=== PATIENT | female | born 1940 | race Caucasian/White ===

== ENCOUNTER → 2020-02-01 | Outpatient (CLI) | payer MEDICARE ==
--- NOTE | 2020-02-02 16:15 | RAD ---
DEXA scan 02/01/2020 Clinical History: Postmenopausal female. Risk factors for osteoporosis. Technique: DEXA of the lumbar spine and right hip was performed. FINDINGS: No previous studies are available for comparison. The bone mineral density of the lumbar spine is 0.874 g/cm2 which corresponds with a T-score of -2.5 . This is consistent with mild osteoporosis. The mean bone mineral density of the right hip is 631 g/sq cm. This corresponds to a T score of -2.6. This is consistent with mild osteoporosis. By World Congress on Osteoporosis criteria, a T score of 0 to-1 SD is considered to be within normal limits. A T score of -1 to -2.5 SD is considered osteopenia. A T score less than -2.5 SD is considered osteoporosis Impression: Mild osteoporosis. Electronically signed by: Khai Chong MD (02/02/2020 4:12 PM) [id number]
--- NOTE | 2020-02-05 14:30 | RAD ---
DATE: 02/01/2020 10:47 AM EXAM: DIGITAL SCREEN BILAT W/CAD HISTORY: Screening COMPARISON: 01/02/2019 Bilateral full field craniocaudal and mediolateral oblique images were obtained using digital technique. This study was interpreted with the benefit of Computerized Aided Detection (CAD). FINDINGS: Breast Density: SCATTERED The breast parenchyma shows scattered fibroglandular densities. Breast parenchyma level B An asymmetry in the anterior lateral right breast approximately 4.7 cm from the nipple is best seen on cc view and needs additional imaging with spot compression view, full-field lateral view and possible targeted right breast ultrasound. 3-D imaging on the lateral view with possible additional 3-D images of the right cc view might be beneficial. The left mammogram is negative. IMPRESSION: Right breast asymmetry, findings for which additional imaging is advised. BI-RADS CATEGORY: 0 INCOMPLETE: NEEDS ADDITIONAL IMAGING EVALUATION AND/OR PRIOR MAMMOGRAMS FOR COMPARISON. RECOMMENDED FOLLOW-UP: ADD ADDITIONAL IMAGING The patient will be contacted to return for additional imaging and a supplemental report will follow. PQRS compliance statement: Patient information was entered into a reminder system with a target due date for the next mammogram. Mammography is a sensitive method for finding small breast cancers, but it does not detect them all and is not a substitute for careful clinical examination. A negative mammogram does not negate a clinically suspicious finding and should not result in delay in biopsying a clinically suspicious abnormality. "Our facility is accredited by the [employer] Mammography Program."
== END ==
LOC: MAMMO 10:17
PROVIDERS: ATTEND Specialist
DX: Z12.31 Encounter for screening mammogram for malignant neoplasm of breast (principal); M81.0 Age-related osteoporosis without current pathological fracture; N64.89 Other specified disorders of breast; F17.200 Nicotine dependence, unspecified, uncomplicated; Z78.0 Asymptomatic menopausal state
CPT/HCPCS: 77067; 77080

== ENCOUNTER 2020-02-22 23:03 | Emergency (ER) | payer MEDICARE ==
[~2020-02-22] VITALS: Ht 165.1 cm; Wt 61.3 kg
[2020-02-22 23:05] VITALS: BP 180/77
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
[2020-02-22 23:50] LABS: BASO # 0.1 x10^3/uL (0.0-0.2); BASO % 1 % (0-3); EOS # 0.3 x10^3/uL (0.0-0.7); EOS % 3 % (0-3); HEMATOCRIT 39.9 % (36.0-47.0); HEMOGLOBIN 13.2 g/dL (12.0-15.5); LYMPH # 3.7 x10^3/uL (1.0-4.8); LYMPH % 35 % (24-48); MEAN CORPUSCULAR HEMOGLOBIN 33 pg (25-35); MEAN CORPUSCULAR HGB CONC 33 g/dL (31-37); MEAN CORPUSCULAR VOLUME 99 fL (79-100); MONO # 1.1 x10^3/uL (0.0-1.1); MONO % 10 % (0-9); NEUT # 5.4 x10^3uL (1.8-7.7); NEUT % 51 % (31-73); PLATELET COUNT 299 x10^3/uL (140-400); RED BLOOD COUNT 4.01 x10^6/uL (3.50-5.40); RED CELL DISTRIBUTION WIDTH 13.2 % (11.5-14.5); WHITE BLOOD COUNT 10.5 x10^3/uL (4.0-11.0)
[2020-02-22 23:59] LABS: CREATININE 0.9 mg/dL (0.6-1.0); GFR 60.4; POTASSIUM 3.6 mmol/L (3.5-5.1)
[2020-02-23 00:13] LABS: ALBUMIN 3.9 g/dL (3.4-5.0); C REACTIVE PROTEIN 1.2 mg/L (0-3.3); DIRECT BILIRUBIN 0.1 mg/dL (0.0-0.2); MAGNESIUM 1.7 mg/dL (1.8-2.4); TOTAL BILIRUBIN 0.3 mg/dL (0.2-1.0); TOTAL PROTEIN 7.4 g/dL (6.4-8.2)
[2020-02-23] MEDS: IV RINGERS SOLUTION,LACTATED 1,000 ML IV ONE (02:00)
[2020-02-23] MEDS ORDERED: cefTRIAXone SODIUM 1 GM VIAL ONE (02:04)
[2020-02-23 02:12] LABS: BARBITURATES NEG (NEG); BENZODIAZEPINES NEG (NEG); CANNABINOIDS NEG (NEG); COCAINE NEG (NEG); METHADONE NEG (NEG); OPIATES NEG (NEG); PHENCYCLIDINE NEG (NEG)
[2020-02-23] MEDS: IV RINGERS SOLUTION,LACTATED 1,000 ML IV SCH (02:18)
[2020-02-23 02:19] LABS: BACTERIA,URINE MANY /HPF (0-FEW); BILIRUBIN,URINE NEG (NEG); CLARITY,URINE HAZY; COLOR,URINE YELLOW; GLUCOSE,URINE NEG (NEG); NITRITE,URINE POS (NEG); RBC,URINE 0 /HPF (0-2); SQUAMOUS EPITHELIAL CELL,UR FEW /LPF; UROBILINOGEN,URINE 0.2 mg/dL (0.2 mg/dL)
[2020-02-23 02:25] LABS: AMPHETAMINE/METHAMPHETAMINE NEG (NEG)
--- NOTE | 2020-02-23 02:53 | EKG ---
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
[2020-02-23] MEDS ORDERED: CEPH-264 PO (03:32)
--- NOTE | 2020-02-23 16:20 | RAD ---
XR CHEST 1V History: Reason: stroke symptoms, dyspnea / Spl. Instructions: / History: Comparison: None. Findings: Mild linear bibasilar atelectasis. Mild elevation the right hemidiaphragm. Chronic left-sided rib fra ctures. No consolidation or pleural effusion. Normal heart size. No pneumothorax. Impression: 1. No acute cardiopulmonary process. Electronically signed by: Tc Mendoza DO (02/23/2020 12:20 AM) [facility]
--- NOTE | 2020-02-23 16:20 | RAD ---
CT HEAD/BRAIN WO History: Reason: stroke symptoms / Spl. Instructions: / History: Comparison: None. Technique: Noncontrast CT imaging was performed of the head. Exposure: One or more of the following individualized dose reduction techniques were utilized for thi s examination: 1. Automated exposure control 2. Adjustment of the mA and/or kV according to patient size 3. Use of iterative reconstruction technique. Findings: No intracranial hemorrhage. No mass effect. No hydrocephalus. Chronic appearing left frontal small cortical infarct superiorly. Mild additional foci of decreased attenuation within the hemispheric white matter, most often due to chronic microvascular ischemia. Imaged orbits are unremarkable. Imaged paranasal sinuses and mastoid air cells are clear. No acute ca lvarial fracture. TMJ arthropathy. Impression: 1. No acute intracranial hemorrhage. 2. Age indeterminant left frontal cortical infarct potentially chronic. Recommend MRI to further piper luate if clinically indicated. FOR INTERNAL CODING PURPOSES Critical result: Findings discussed with Dr. Lucas at 02/22/2020 11:22 PM. RESULT CODE: (C) Electronically signed by: Tc eMndoza DO (02/22/2020 11:25 PM) [facility]
== END 2020-02-23 04:00 | disposition home or self-care (01) ==
LOC: ER 23:03
DX: E87.0 Hyperosmolality and hypernatremia (principal); N39.0 Urinary tract infection, site not specified; E86.0 Dehydration; R53.1 Weakness; M19.90 Unspecified osteoarthritis, unspecified site; F17.210 Nicotine dependence, cigarettes, uncomplicated; Z86.73 Personal history of transient ischemic attack (TIA), and cerebral infarction without residual deficits; Z87.440 Personal history of urinary (tract) infections; Z87.820 Personal history of traumatic brain injury; Z88.5 Allergy status to narcotic agent
CPT/HCPCS: 36415; 70450; 71045; 80048; 80076; 80307; 81001; 82550; 82947; 83690; 83735; 83880; 84443; 84484; 85025; 85379; 85610; 85730; 86140; 87086; 93005; 96365; 99285; J0696; J7120

== ENCOUNTER 2020-03-09 07:25 | Emergency (ER) | payer MEDICARE ==
[~2020-03-09] VITALS: Ht 165.1 cm; Wt 66.0 kg
[~2020-03-09 07:25] MED LIST: CEPH-264 PO
--- NOTE | 2020-03-09 07:37 | PHYS DOC ---
Past History Past Medical History: Anxiety, Arthritis, CVA, TIA, UTI, Other Additional Past Medical Histor: achalacia, fx lt leg, hx of falls Past Surgical History: Other Additional Past Surgical Histo: bladder suspension, steel rima in lt lower leg; Smoking: Cigarettes Alcohol Use: None Adult General HPI HPI Patient is a 80 year old female with history of hypertension and reported history of TIA 2 weeks ago now presents emergency department complaint of new onset of weakness. Patient states she will complete as having difficulty getting out of bed. Patient reported right-sided weakness but cannot delineate whether this is upper or lower extremities or face includes her face as well. Denies any slurred speech. Denies any vision changes. States she does not present any new medication after her prior TIA but was kept on aspirin and had an increase in her antihypertensives. Denies any headache, nausea, vomiting, fever, chills. Patient notes that she was was to have a appointment with a neurologist on March 28 for ongoing symptoms. States that she has been having some mild discoordination of the right hand for about a week and a half but thinks that this is secondary to her TIA. Of note the patient was seen here on February 21 for urinary tract infection Review of Systems Review of Systems Constitutional: Denies fever or chills [] Eyes: Denies change in visual acuity, redness, or eye pain [] HENT: Denies nasal congestion or sore throat [] Respiratory: Denies cough or shortness of breath [] Cardiovascular: No additional information not addressed in HPI [] GI: Denies abdominal pain, nausea, vomiting, bloody stools or diarrhea [] : Denies dysuria or hematuria [] Musculoskeletal: Denies back pain or joint pain [] Integument: Denies rash or skin lesions [] Neurologic: Denies headache, focal weakness or sensory changes [] Endocrine: Denies polyuria or polydipsia [] All other systems were reviewed and found to be within normal limits, except as documented in this note. Allergies Allergies Allergies Coded Allergies Type Severity Reaction Last Updated Verified morphine Allergy Intermediate Itching 02/23/20 Yes Physical Exam Physical Exam Constitutional: Well developed, well nourished, no acute distress, non-toxic appearance. [] HENT: Normocephalic, atraumatic, bilateral external ears normal, oropharynx mo ist, no oral exudates, nose normal. [] Eyes: PERRLA, EOMI, conjunctiva normal, no discharge. [] Neck: Normal range of motion, no tenderness, supple, no stridor. [] Cardiovascular:Heart rate regular rhythm, no murmur [] Lungs & Thorax: Bilateral breath sounds clear to auscultation [] Abdomen: Bowel sounds normal, soft, no tenderness, no masses, no pulsatile masses. [] Skin: Warm, dry, no erythema, no rash. [] Back: No tenderness, no CVA tenderness. [] Extremities: No tenderness, no cyanosis, no clubbing, ROM intact, no edema. [] Neurologic: Alert and oriented X 3, normal motor function, normal sensory function. Nixon appear to have some mild weakness in R foot compared to L. R finger ataxia as well [] Psychologic: Affect normal, judgement normal, mood normal. [] EKG EKG NSR, no m/g/r, ST segments normal, QRS normal Radiology/Procedures Radiology/Procedures [] Heart Score HEART Score for Chest Pain: HEART Score for Chest Pain Response (Comments) Value History Slighlty/Non-Suspicious 0 ECG Normal 0 Age > 65 2 Risk Factors 1 or 2 Risk Factors 1 Troponin < Normal Limit 0 Total 3 Risk Factors: Risk Factors: DM, Current or recent (<one month) smoker, HTN, HLP, family history of CAD, obesity. Risk Scores: Risk Factors: DM, Current or recent (<one month) smoker, HTN, HLP, family history of CAD, obesity. Course & Med Decision Making Course & Med Decision Making Pertinent Labs and Imaging studies reviewed. (See chart for details) 80F with reported history of TIA and CVA has required endarterectomy in the past comprehensive emergency department however new onset of right-sided focal deficits. Patient does appear to have mild right hand ataxia and mild weakness in the right foot. Her description of the symptoms are more balance and cerebellar nature. CT of the head initially was obtained without evidence of bleed however she does have a history of an old lacunar infarct. Will obtain basic labs and also will obtain a CT angiogram of the head to make sure there is no evidence of any other significant deficit. NIH 3 10:35 -CT angio of the head was completed which does not demonstrate apparent se chon vascular disease including a completely occluded left carotid and vertebral artery. Also with 50% occlusion of the right carotid and vertebral which is raise concern for significant impending occlusive stroke. Currently bleeding neurology as anticipate need for transfer to [facility] 11:13 - Discussed with Dr Johnson from (per patient request) due to concern for new deficits and vascular occlusion. Has graciously accepted transfer of patient. Dragon Disclaimer Dragon Disclaimer This electronic medical record was generated, in whole or in part, using a voice recognition dictation system. Departure Departure: Impression: Primary Impression: TIA (transient ischemic attack) Disposition: 05 DC/TRF OTHER TYPE INSTITUTI Condition: GUARDED Referrals: WALKER MA MD (PCP) KERRI ORTIZ MD Mar 09, 2020 07:37
--- NOTE | 2020-03-09 07:53 | RAD ---
CT HEAD INDICATION: Reason: R sided weakness / Spl. Instructions: / History: COMPARISON: None Available. Exposure: One or more of the following individualized dose reduction techniques were utilized for thi s examination: 1. Automated exposure control 2. Adjustment of the mA and/or kV according to patient size 3. Use of iterative reconstruction technique TECHNIQUE: 5 mm contiguous axial images were obtained from the skull base to the vertex in both bone and soft tissue algorithm. FINDINGS: No abnormal attenuation within the brain parenchyma. No evidence of acute intracranial hemorrhage. No extra-axial fluid collections. No mass effect or midline shift. Ventricular size is appropriate. Basal cisterns are patent. No fractures identified.Barragan-white differentiation is preserved.Globes and orbits are within normal l imits. Paranasal sinuses and mastoid air cells are clear. IMPRESSION: Unremarkable CT examination of the head without contrast, as above. Specifically, no evidence of an acute intracranial abnormality. FOR INTERNAL CODING PURPOSES Critical result: Findings discussed with ER physician at 03/09/2020 7:51 AM. RESULT CODE: (C) Electronically signed by: Luis Alberto Allen MD (03/09/2020 7:51 AM) [id number]
[2020-03-09 08:03] LABS: HEMATOCRIT 38.2 % (36.0-47.0); HEMOGLOBIN 12.7 g/dL (12.0-15.5); RED BLOOD COUNT 3.87 x10^6/uL (3.50-5.40); RED CELL DISTRIBUTION WIDTH 13.8 % (11.5-14.5); WHITE BLOOD COUNT 8.1 x10^3/uL (4.0-11.0)
[2020-03-09 08:19] LABS: ALBUMIN 3.4 g/dL (3.4-5.0); CALCIUM 9.1 mg/dL (8.5-10.1); CREATININE 0.8 mg/dL (0.6-1.0); DIRECT BILIRUBIN 0.1 mg/dL (0.0-0.2); GFR 69.2; POTASSIUM 3.6 mmol/L (3.5-5.1); TOTAL BILIRUBIN 0.2 mg/dL (0.2-1.0); TOTAL PROTEIN 6.4 g/dL (6.4-8.2)
[2020-03-09] MEDS ORDERED: IOHEXOL 350 MG/ML 100 ML VIAL. IV ONE (09:00)
--- NOTE | 2020-03-09 10:17 | RAD ---
CT angiogram of the head and neck with contrast: Reason for examination: Right-sided deficits/numbness. Helical images were obtained through the head and neck with intravenous administration of 100 cc Omni paque 350 using angiographic protocol. 3-D MIPS reconstruction was performed in sagittal and coronal planes. Exposure: One or more of the following individualized dose reduction techniques were utilized for thi s examination: 1. Automated exposure control 2. Adjustment of the mA and/or kV according to patient size 3. Use of iterative reconstruction technique. The aortic arch shows some arteriosclerotic vascular calcification but no significant aneurysmal dila tation or evidence of dissection. There is normal origin of the right brachiocephalic artery, left co mmon carotid artery and left subclavian arteries from the arch. The right vertebral arteries arise fr om the subclavian artery and is patent to the basilar artery but there is some atherosclerotic calcif ication with a 50 percent decrease in the lumen about 5 mm above its origin. The left vertebral arter y is small but identified from the basilar artery to the level of the C5 vertebral body but not betwe en the C5 vertebral body at its origin and this would be consistent with retrograde flow. The right c ommon carotid artery shows no significant plaque or stenosis. At the right internal carotid artery pr oximally however, there is calcification and soft plaque with a 50 percent decrease in luminal diamet er. Distal to this proximal stenosis, there is no sites of stenosis or occlusion. The left common car otid artery is patent to the bifurcation where there is plaque and there is blood flow into the left external carotid artery but no blood flow distal in the left internal carotid artery. Intracranially, the basilar artery is patent and there appears be blood flow into the superior cerebe llar and posterior cerebral arteries. Posterior communicating arteries bilaterally are patent. The an terior and middle cerebral arteries are patent without stenoses. No aneurysms or arteriovenous malfor mations are seen. The cerebral veins and dural sinuses appear to be patent. Right jugular vein is larger than the left. 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 Occluded left vertebral artery from its origin but there is flow in the distal left vertebral artery from the basilar artery back to the level of the C5 vertebral body consistent with retrograde flow. 50 percent stenosis proximally in the right vertebral artery approximately 5 mm from its origin but g ood flow distally. 50 percent stenosis at the origin of the right internal carotid artery but good flow distally. Electronically signed by: Cristina Rajput MD (03/09/2020 10:14 AM) [id number]
[2020-03-09 11:02] VITALS: BP 165/90
--- NOTE | 2020-03-11 09:48 | EKG ---
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
== END 2020-03-09 11:39 | disposition short-term general hospital (02) ==
LOC: ER 07:25
DX: G45.9 Transient cerebral ischemic attack, unspecified (principal); I10 Essential (primary) hypertension; F41.9 Anxiety disorder, unspecified; M19.90 Unspecified osteoarthritis, unspecified site; F17.210 Nicotine dependence, cigarettes, uncomplicated; Z87.440 Personal history of urinary (tract) infections; Z86.73 Personal history of transient ischemic attack (TIA), and cerebral infarction without residual deficits; Z88.5 Allergy status to narcotic agent
CPT/HCPCS: 36415; 70450; 70496; 70498; 80048; 80076; 84484; 85027; 85610; 85730; 93005; 99285; Q9967

== ENCOUNTER → 2020-04-15 | Outpatient (CLI) | payer MEDICARE ==
--- NOTE | 2020-04-15 17:50 | RAD ---
Examination: 1. Right digital diagnostic mammogram. 2. Limited right breast ultrasound. INDICATION: Screening recall for asymmetry in the anterior lateral right breast. COMPARISON: 02/01/2020 screening mammogram. TECHNIQUE: 3-D CC and ML views of the right breast were obtained along with spot compression right cc view and a full-field right ML view. Images reviewed with computer-aided detection. Thereafter, targeted ultrasound of the lateral right breast was performed anteriorly. FINDINGS: Heterogeneously dense breast parenchyma. The questioned asymmetry changed configuration in a pattern suggesting benign overlap of dense fibroglandular tissue. Given the density of the breast tissue however, additional imaging by ultrasound was performed targeting the anterior lateral breast. Ultrasound revealed at the right 10:00 position 4 cm from the nipple a 4 mm oval hypoechoic structure with no internal vascularity that showed low level internal echoes and well-defined posterior margin. It appeared contiguous with intraparenchymal ducts in the antiradial orientation. IMPRESSION: Probably benign focal duct ectasia at the right 10:00 position 4 cm from the nipple. Recommend a six-month follow-up right targeted breast ultrasound and possible diagnostic mammogram. BI-RADS Category 3 Probably benign findings Patient entered into reminder system with target due date for next mammogram.
== END ==
LOC: MAMMO 14:01
PROVIDERS: ATTEND Specialist
DX: N60.41 Mammary duct ectasia of right breast (principal)
CPT/HCPCS: 76641; 77065

== ENCOUNTER → 2021-01-22 | Outpatient (CLI) | payer MEDICARE ==
--- NOTE | 2021-01-23 08:27 | RAD ---
CT LOW DOSE LUNG SCREEN INDICATION: OFF AND ON SMOKER FOR 50 YEARS COMPARISON STUDY: None. TECHNIQUE: Unenhanced axial images were obtained through the lungs and upper abdomen using low dose technique. Coronal and sagittal multiplanar reformatted images were also obtained. PQRS compliance statement: One or more of the following individualized dose reduction techniques were utilized for this examinat ion: 1. Automated exposure control 2. Adjustment of the mA and/or kV according to patient size 3. Use of iterative reconstruction technique FINDINGS: Lung Nodules: No suspicious pulmonary nodule. Lungs and Airways: No pulmonary mass or consolidation. Bibasilar dependent and subsegmental atelectas is. Normal central airways. Pleura: Normal pleural spaces. Heart and Mediastinum: The visualized portions of the thyroid gland are normal in size and attenuatio n. No axillary or supraclavicular lymphadenopathy. No mediastinal, hilar or retrocrural lymphadenopat hy. Normal cardiac size. No pericardial effusion. Coronary artery atherosclerotic disease. Normal lillian iber thoracic aorta. Moderate to large mixed sliding and paraesophageal type hiatal hernia Abdomen: Cholelithiasis. Bones and Soft Tissues: Degenerative changes of the spine. IMPRESSION: 1. No suspicious pulmonary nodules. Lung-RADS Category: 1 Management Recommendation: Follow up low-dose chest CT in one year. 2. Moderate to large hiatal hernia. 3. Cholelithiasis. 4. Coronary artery atherosclerotic disease. Electronically signed by: Daryl Ballesteros MD (01/23/2021 8:25 AM) [id number]
--- NOTE | 2021-01-23 10:28 | RAD ---
CLINICAL INDICATION: YEMI MARSHALL, who is 81 years of age, presents for further evaluation of an abnormality seen on prior mammogram with left breast. COMPARISON: Prior mammographic imaging 04/15/2020, 01/22/2021 02/01/2020 TECHNIQUE: Diagnostic views of the bilateral breasts were obtained, utilizing digital technique. BREAST COMPOSITION: The breast tissue is heterogenously dense, which could obscure detection of small masses. MAMMOGRAM FINDINGS: The asymmetry in the right breast is stable in appearance, seen best laterally on the CC view. Otherw ise, there are no suspicious masses, microcalcifications, or architectural distortion to suggest declan gnancy in either breast. The visualized axillae appear unremarkable. This was further assessed by ultrasound. ULTRASOUND FINDINGS: Targeted ultrasound of the mammographic area of concern was performed. 10:00 position, 4 cm from the nipple: A hypoechoic mass of circumscribed margins and heterogeneous in ternal echoes is present with parallel orientation and is of oval/round shape. There is no internal v ascularity on Doppler interrogation. It measures 4 x 3 x 4 mm. IMPRESSION: 1. Right breast probably benign mass for which follow up is recommended. RECOMMENDATION: In the absence of new clinical symptoms or change in physical exam, short term follow up diagnostic e xamination is recommended in 6 months to assess for interval stability. BIRADS 3: PROBABLY BENIGN Electronically signed by: Kush Oglesby MD (01/23/2021 10:26 AM) [id number]
== END ==
LOC: MAMMO 13:40
PROVIDERS: ATTEND Specialist
DX: N63.11 Unspecified lump in the right breast, upper outer quadrant (principal); J98.11 Atelectasis; K80.20 Calculus of gallbladder without cholecystitis without obstruction; I25.10 Atherosclerotic heart disease of native coronary artery without angina pectoris; K44.9 Diaphragmatic hernia without obstruction or gangrene; M47.819 Spondylosis without myelopathy or radiculopathy, site unspecified; F17.210 Nicotine dependence, cigarettes, uncomplicated
CPT/HCPCS: 71271; 76642; 77066